=== PATIENT | female | born 1975 | race Hispanic/Latino ===

== ENCOUNTER 2018-02-10 13:15 | Emergency (ER) | payer OTHER ==
[~2018-02-10] VITALS: Ht 162.6 cm; Wt 81.6 kg
[2018-02-10] MEDS ORDERED: PENICILLIN G BENZATHINE LA 1.2 MU TBX IM STA (13:50)
[2018-02-10] MEDS ORDERED: ACETAMINOPHEN/CODEINE ELIX 120-12 MG/5 ML UDC NG ONE (14:00)
[2018-02-10] MEDS ORDERED: ALBUTEROL/IPRATROPIUM 3 ML NEB NEB ONE (14:00)
[2018-02-10 14:34] VITALS: BP 126/80
== END 2018-02-10 14:35 | disposition home or self-care (01) ==
LOC: FSED 13:15
DX: R05 Cough (principal); H92.03 Otalgia, bilateral; J20.9 Acute bronchitis, unspecified; J02.0 Streptococcal pharyngitis
CPT/HCPCS: 83518 ×2; 99283; J0561